=== PATIENT | female | born 1935 | race Caucasian/White ===

== ENCOUNTER 2018-10-25 14:21 | Emergency (ER) | payer MEDICARE ==
[~2018-10-25] VITALS: Ht 165.1 cm; Wt 63.5 kg
[~2018-10-25 14:21] MED LIST: ALPR0.25 PO; ASPI-1153 PO; DIVA250T34 PO; LEVO75TA7 PO; LIP10 PO; LOSA25TA3 PO; MEMA5TAB PO
[2018-10-25 14:24] VITALS: BP_SYST 120
[2018-10-25 19:37] VITALS: BP_SYST 120
== END 2018-10-25 19:37 | disposition home or self-care (01) ==
LOC: SED 14:21
DX: S00.03XA Contusion of scalp, initial encounter (principal); F03.90 Unspecified dementia, unspecified severity, without behavioral disturbance, psychotic disturbance, mood disturbance, and anxiety; Z79.82 Long term (current) use of aspirin; Z79.899 Other long term (current) drug therapy; Z88.8 Allergy status to other drugs, medicaments and biological substances; W07.XXXA Fall from chair, initial encounter; Y93.89 Activity, other specified; Y92.89 Other specified places as the place of occurrence of the external cause; Y99.8 Other external cause status
CPT/HCPCS: 70450-TC; 99284

== ENCOUNTER 2020-05-24 16:02 | Inpatient (IN) | payer MEDICARE, SELFPAY ==
[~2020-05-24] VITALS: Ht 157.5 cm; Wt 49.9 kg
[2020-05-24 16:02] VITALS: BP_SYST 131
[~2020-05-24 16:02] MED LIST changes: -ASPI-1153 PO; +ASPI-1393 PO
[2020-05-24] MEDS ORDERED: NACL 0.9% 1,000 ML IV ONE (16:45)
[2020-05-24 17:22] LABS: BASOPHILS % (AUTO) 0.8 % (0.0-2.0); HEMOGLOBIN 13.6 g/dL (12.0-16.0); LYMPHOCYTES # (AUTO) 1.5 K/uL (1.0-5.5); LYMPHOCYTES % (AUTO) 24.3 % (20.5-51.5); MEAN CORPUSCULAR HEMOGLOBIN 32 pg (27-31); MEAN CORPUSCULAR HGB CONC 34 % (32-36); MEAN CORPUSCULAR VOLUME 94 fL (79.0-98.0); MONOCYTES # (AUTO) 0.7 K/uL (0.0-1.0); MONOCYTES % (AUTO) 12.2 % (1.7-9.3); NEUTROPHILS # (AUTO) 3.8 K/uL (1.8-7.7); NEUTROPHILS % (AUTO) 62.7 % (40.0-70.0); PLATELET COUNT (AUTO) 269 K/uL (130-430); RED BLOOD CELL COUNT(AUTO) 4.27 MIL/uL (4.2-6.2)
[2020-05-24 17:45] LABS: PROTHROMBIN TIME 9.8 SECS (9.5-12.5)
[2020-05-24 18:17] LABS: ANION GAP 11 (5-15); CALCIUM 8.2 mg/dL (8.4-11.0); CHLORIDE 107 mmol/L (98-107); CREATININE 1.38 mg/dL (0.55-1.30); GLUCOSE 130 mg/dL (70-99); SODIUM SERUM 146 mmol/L (136-145); UREA NITROGEN, BLOOD 35 mg/dL (8-21)
[2020-05-24 18:22] LABS: ALANINE AMINOTRANSFERASE 24 U/L (12-78); ALBUMIN 3.1 g/dL (3.4-4.8); ASPARTATE AMINOTRANSFERASE 11 U/L (10-37); TOTAL BILIRUBIN 0.5 mg/dL (0.0-1.0)
[2020-05-24] MEDS ORDERED: POTASSIUM CHLORIDE 20 MEQ/PKT PACKET PO ONE (19:00)
[2020-05-24] MEDS ORDERED: KCL 20 mEq in 100 mL (PREMIX) 100 ML IV ONE (19:00)
[2020-05-24] MEDS ORDERED: GUAI5SYR4 PO (19:32)
[2020-05-24] MEDS ORDERED: ESCI10TA PO (19:32)
[2020-05-24] MEDS ORDERED: DEPS125 PO (19:32)
[2020-05-24] MEDS ORDERED: [UNRECOGNIZED DRUG - CODE] PO (19:42)
[2020-05-24] MEDS ORDERED: 0.45% NACL 1,000 ML IV SCH (19:45)
[2020-05-24] MEDS: AZITHROMYCIN 500 MG in NS 250 ML IV SCH (21:04)
[2020-05-24] MEDS ORDERED: ACETAMINOPHEN 650 MG SUPP.RECT RC PRN (22:45)
[2020-05-24] MEDS ORDERED: PROMETHAZINE-DM 6.25 MG-15 MG/5 ML UDC PO PRN (22:45)
[2020-05-24] MEDS ORDERED: ALPRAZolam 0.25 MG TABLET PO PRN (22:45)
[2020-05-24] MEDS ORDERED: POTASSIUM CHLORIDE 40 MEQ in D5W 250 ML IV SCH (22:45)
[2020-05-24] MEDS ORDERED: ENOXAPARIN SODIUM 30 MG/0.3 ML SYRINGE SUBCUT ONE (22:45)
[2020-05-24] MEDS ORDERED: ALBUTEROL MDI INHALATION 8 GM INH INH SCH (22:45)
[2020-05-24] MEDS ORDERED: ACETAMINOPHEN 325 MG TABLET PO PRN (22:45)
[2020-05-24] MEDS ORDERED: cefTRIAXone 1 GM VIAL ONE (22:58)
[2020-05-24] MEDS ORDERED: hydrALAZINE HCL 20 MG/ML VIAL IVP PRN (23:00)
[2020-05-24] MEDS: DEXAMETHASONE SOD PHOSPHATE 10 MG/ML VIAL IVP SCH (23:23)
[2020-05-24] MEDS: cefTRIAXone 1 GM in D5W 50 ML IV SCH (23:24)
[2020-05-24] MEDS: KCL 20 mEq in 100 mL (PREMIX) 100 ML IV SCH (23:56)
[2020-05-25 00:24] VITALS: BP_SYST 167
[2020-05-25] MEDS: cefTRIAXone 1 GM in D5W 50 ML IV SCH (00:24)
[2020-05-25] MEDS: KCL 20 mEq in 100 mL (PREMIX) 100 ML IV SCH (01:00)
[2020-05-25 08:00] VITALS: BP_SYST 174
[2020-05-25 08:13] LABS: BASOPHILS % (AUTO) 0.5 % (0.0-2.0); HEMATOCRIT 36.7 % (36-48); HEMOGLOBIN 12.6 g/dL (12.0-16.0); LYMPHOCYTES # (AUTO) 0.7 K/uL (1.0-5.5); LYMPHOCYTES % (AUTO) 14.6 % (20.5-51.5); MEAN CORPUSCULAR HEMOGLOBIN 32 pg (27-31); MEAN CORPUSCULAR HGB CONC 34 % (32-36); MEAN CORPUSCULAR VOLUME 94 fL (79.0-98.0); MONOCYTES # (AUTO) 0.2 K/uL (0.0-1.0); MONOCYTES % (AUTO) 4.4 % (1.7-9.3); NEUTROPHILS # (AUTO) 3.9 K/uL (1.8-7.7); NEUTROPHILS % (AUTO) 80.5 % (40.0-70.0); PLATELET COUNT (AUTO) 259 K/uL (130-430); RED CELL DISTRIBUTION WIDTH 13.1 % (9.0-15.0); WHITE BLOOD COUNT (AUTO) 4.8 K/uL (4.8-10.8)
[2020-05-25] MEDS: ALBUTEROL MDI INHALATION 8 GM INH INH SCH (08:35)
[2020-05-25 08:40] LABS: ALANINE AMINOTRANSFERASE 21 U/L (12-78); ALBUMIN 2.9 g/dL (3.4-4.8); ANION GAP 12 (5-15); ASPARTATE AMINOTRANSFERASE 25 U/L (10-37); CALCIUM 8.6 mg/dL (8.4-11.0); CHLORIDE 110 mmol/L (98-107); CREATININE 0.85 mg/dL (0.55-1.30); GLUCOSE 189 mg/dL (70-99); PHOSPHORUS 2.5 mg/dL (2.7-4.5); POTASSIUM 3.2 mmol/L (3.5-5.1); SODIUM SERUM 146 mmol/L (136-145); TOTAL BILIRUBIN 0.3 mg/dL (0.0-1.0); UREA NITROGEN, BLOOD 28 mg/dL (8-21)
[2020-05-25] MEDS ORDERED: ASPIRIN 81 MG TABLET(ECOTRIN) ONE (09:37)
[2020-05-25] MEDS: DIVALPROEX SODIUM 125 MG CAP.(DEPAKOTE SPRINKLE) PO SCH ×2 (09:56→22:10)
[2020-05-25] MEDS: CITALOPRAM HYDROBROMIDE 20 MG TABLET PO SCH (09:56)
[2020-05-25] MEDS: CHOLECALCIFEROL (VITAMIN D3) 2,000 UNIT TABLET PO SCH (09:57)
[2020-05-25] MEDS: MAGNESIUM OXIDE 400 MG TABLET PO SCH ×2 (09:57→22:10)
[2020-05-25] MEDS: ASCORBIC ACID 500 MG TABLET PO SCH ×2 (09:57→22:10)
[2020-05-25] MEDS: LEVOTHYROXINE SODIUM 0.075 MG TABLET PO SCH (09:57)
[2020-05-25] MEDS: ASPIRIN 81 MG TABLET(ECOTRIN) PO SCH (09:57)
[2020-05-25] MEDS: MEMANTINE HCL 5 MG TABLET PO SCH ×2 (09:57→22:10)
[2020-05-25] MEDS: ATORVASTATIN 10 MG TABLET PO SCH (09:57)
[2020-05-25] MEDS: ENOXAPARIN SODIUM 30 MG/0.3 ML SYRINGE SUBCUT SCH ×2 (10:00→22:10)
[2020-05-25] MEDS ORDERED: POTASSIUM CHLORIDE 40 MEQ, LIDOCAINE JECT 2% PF 100 MG 50 MG in NS 250 ML IV ONE (11:00)
[2020-05-25] MEDS: KCL 40 mEq in D5W 1000 mL 1,000 ML IV SCH (12:51)
[2020-05-25 13:16] VITALS: BP_SYST 100
[2020-05-25 17:13] VITALS: BP_SYST 116
[2020-05-25 20:00] VITALS: BP_SYST 112
[2020-05-25] MEDS: DEXAMETHASONE SOD PHOSPHATE 10 MG/ML VIAL IVP SCH (22:41)
[2020-05-25] MEDS: AZITHROMYCIN 500 MG in NS 250 ML IV SCH (23:00)
[2020-05-25] MEDS ORDERED: AZITHROMYCIN 500 MG/VIAL (ZITHROMAX) IV ONE (23:07)
[2020-05-25] MEDS ORDERED: cefTRIAXone 1 GM IVPB PREMIX 50 ML IV ONE (23:07)
[2020-05-26] VITALS: BP_SYST 118
[2020-05-26] MEDS: cefTRIAXone 1 GM in D5W 50 ML IV SCH (00:10)
[2020-05-26] MEDS: KCL 40 mEq in D5W 1000 mL 1,000 ML IV SCH (05:52)
[2020-05-26 08:00] VITALS: BP_SYST 156
[2020-05-26] MEDS: ASPIRIN 81 MG TABLET(ECOTRIN) PO SCH (10:12)
[2020-05-26] MEDS: CITALOPRAM HYDROBROMIDE 20 MG TABLET PO SCH (10:12)
[2020-05-26] MEDS: DIVALPROEX SODIUM 125 MG CAP.(DEPAKOTE SPRINKLE) PO SCH ×2 (10:12→21:00)
[2020-05-26] MEDS: ENOXAPARIN SODIUM 30 MG/0.3 ML SYRINGE SUBCUT SCH ×2 (10:13→21:00)
[2020-05-26] MEDS: ASCORBIC ACID 500 MG TABLET PO SCH ×2 (10:14→21:00)
[2020-05-26] MEDS: CHOLECALCIFEROL (VITAMIN D3) 2,000 UNIT TABLET PO SCH (10:14)
[2020-05-26] MEDS: MEMANTINE HCL 5 MG TABLET PO SCH ×2 (10:15→21:00)
[2020-05-26] MEDS: LEVOTHYROXINE SODIUM 0.075 MG TABLET PO SCH (10:15)
[2020-05-26] MEDS: MAGNESIUM OXIDE 400 MG TABLET PO SCH ×2 (10:15→21:00)
[2020-05-26] MEDS: ATORVASTATIN 10 MG TABLET PO SCH (10:15)
[2020-05-26 11:34] VITALS: BP_SYST 130
[2020-05-26] MEDS ORDERED: LR 500 ML IV ONE (12:00)
[2020-05-26] MEDS ORDERED: POTASSIUM CHLORIDE 40 MEQ in D5W 250 ML IV ONE (12:15)
[2020-05-26 15:30] VITALS: BP_SYST 141
[2020-05-26 20:00] VITALS: BP_SYST 133
[2020-05-26] MEDS ORDERED: cefTRIAXone 1 GM VIAL ONE (23:20)
[2020-05-26] MEDS ORDERED: AZITHROMYCIN 500 MG/VIAL (ZITHROMAX) IV ONE (23:20)
[2020-05-26] MEDS: AZITHROMYCIN 500 MG in NS 250 ML IV SCH (23:30)
[2020-05-26] MEDS: DEXAMETHASONE SOD PHOSPHATE 10 MG/ML VIAL IVP SCH (23:30)
[2020-05-27] VITALS: BP_SYST 135; BP_SYST 149
[2020-05-27] MEDS: KCL 40 mEq in D5W 1000 mL 1,000 ML IV SCH ×2 (02:00→22:00)
[2020-05-27 06:43] LABS: BASOPHILS % (AUTO) 0.1 % (0.0-2.0); HEMOGLOBIN 12.1 g/dL (12.0-16.0); MEAN CORPUSCULAR HEMOGLOBIN 33 pg (27-31); MEAN CORPUSCULAR HGB CONC 36 % (32-36); MEAN CORPUSCULAR VOLUME 92 fL (79.0-98.0); MONOCYTES # (AUTO) 0.3 K/uL (0.0-1.0); MONOCYTES % (AUTO) 4.1 % (1.7-9.3); NEUTROPHILS # (AUTO) 5.1 K/uL (1.8-7.7); NEUTROPHILS % (AUTO) 80.8 % (40.0-70.0); PLATELET COUNT (AUTO) 300 K/uL (130-430); RED BLOOD CELL COUNT(AUTO) 3.71 MIL/uL (4.2-6.2); RED CELL DISTRIBUTION WIDTH 12.8 % (9.0-15.0); WHITE BLOOD COUNT (AUTO) 6.3 K/uL (4.8-10.8)
[2020-05-27 07:49] LABS: ALANINE AMINOTRANSFERASE 23 U/L (12-78); ALBUMIN 2.8 g/dL (3.4-4.8); ANION GAP 12 (5-15); ASPARTATE AMINOTRANSFERASE 25 U/L (10-37); CALCIUM 8.2 mg/dL (8.4-11.0); CHLORIDE 106 mmol/L (98-107); CREATININE 0.68 mg/dL (0.55-1.30); GLUCOSE 203 mg/dL (70-99); POTASSIUM 3.1 mmol/L (3.5-5.1); SODIUM SERUM 140 mmol/L (136-145); TOTAL BILIRUBIN 0.4 mg/dL (0.0-1.0); UREA NITROGEN, BLOOD 27 mg/dL (8-21)
[2020-05-27 08:35] VITALS: BP_SYST 135
[2020-05-27] MEDS: ATORVASTATIN 10 MG TABLET PO SCH (09:00)
[2020-05-27] MEDS: MEMANTINE HCL 5 MG TABLET PO SCH ×2 (09:00→21:55)
[2020-05-27] MEDS: CITALOPRAM HYDROBROMIDE 20 MG TABLET PO SCH (09:00)
[2020-05-27] MEDS: CHOLECALCIFEROL (VITAMIN D3) 2,000 UNIT TABLET PO SCH (09:00)
[2020-05-27] MEDS: DIVALPROEX SODIUM 125 MG CAP.(DEPAKOTE SPRINKLE) PO SCH ×2 (09:00→21:55)
[2020-05-27] MEDS: ASPIRIN 81 MG TABLET(ECOTRIN) PO SCH (09:00)
[2020-05-27] MEDS: ASCORBIC ACID 500 MG TABLET PO SCH ×2 (09:00→21:55)
[2020-05-27] MEDS: ENOXAPARIN SODIUM 30 MG/0.3 ML SYRINGE SUBCUT SCH ×2 (09:00→21:55)
[2020-05-27] MEDS: MAGNESIUM OXIDE 400 MG TABLET PO SCH ×2 (09:00→21:55)
[2020-05-27] MEDS: LEVOTHYROXINE SODIUM 0.075 MG TABLET PO SCH (09:00)
[2020-05-27 11:24] VITALS: BP_SYST 156
[2020-05-27] MEDS ORDERED: HALOPERIDOL LACTATE 5 MG/ML VIAL IM ONE (12:00)
[2020-05-27] MEDS ORDERED: HALOPERIDOL LACTATE 5 MG/ML VIAL IM PRN (12:00)
[2020-05-27] MEDS ORDERED: DEXTROSE 50% JECT 50 ML DISP.SYRIN IVP PRN (12:00)
[2020-05-27] MEDS ORDERED: INSULIN REGULAR, HUMAN 100 UNITS/ML, 10 ML VIAL (humuLIN R) SUBCUT PRN (12:00)
[2020-05-27] MEDS: POTASSIUM CHLORIDE 40 MEQ in D5W 250 ML IV SCH ×2 (13:30→16:00)
[2020-05-27] MEDS: ALBUTEROL MDI INHALATION 8 GM INH INH SCH (15:00)
[2020-05-27 15:07] VITALS: BP_SYST 149
[2020-05-27] MEDS: QUEtiapine FUMARATE 25 MG TABLET PO SCH (17:56)
[2020-05-27] MEDS: AZITHROMYCIN 500 MG in NS 250 ML IV SCH (21:55)
[2020-05-27] MEDS: cefTRIAXone 1 GM in D5W 50 ML IV SCH (22:45)
[2020-05-28] MEDS: ALBUTEROL MDI INHALATION 8 GM INH INH SCH ×4 (07:00→19:30)
[2020-05-28 07:24] LABS: BASOPHILS % (AUTO) 0.2 % (0.0-2.0); HEMATOCRIT 34.3 % (36-48); LYMPHOCYTES # (AUTO) 2.4 K/uL (1.0-5.5); LYMPHOCYTES % (AUTO) 34.7 % (20.5-51.5); MEAN CORPUSCULAR HEMOGLOBIN 32 pg (27-31); MEAN CORPUSCULAR HGB CONC 35 % (32-36); MEAN CORPUSCULAR VOLUME 92 fL (79.0-98.0); MONOCYTES # (AUTO) 0.6 K/uL (0.0-1.0); MONOCYTES % (AUTO) 9.1 % (1.7-9.3); NEUTROPHILS # (AUTO) 3.9 K/uL (1.8-7.7); PLATELET COUNT (AUTO) 331 K/uL (130-430); RED BLOOD CELL COUNT(AUTO) 3.75 MIL/uL (4.2-6.2); RED CELL DISTRIBUTION WIDTH 12.6 % (9.0-15.0)
[2020-05-28 08:10] LABS: ANION GAP 12 (5-15); CALCIUM 8.1 mg/dL (8.4-11.0); CHLORIDE 105 mmol/L (98-107); CREATININE 0.74 mg/dL (0.55-1.30); GLUCOSE 126 mg/dL (70-99); POTASSIUM 3.4 mmol/L (3.5-5.1); SODIUM SERUM 138 mmol/L (136-145); UREA NITROGEN, BLOOD 18 mg/dL (8-21)
[2020-05-28] MEDS: DIVALPROEX SODIUM 125 MG CAP.(DEPAKOTE SPRINKLE) PO SCH ×2 (08:54→21:30)
[2020-05-28] MEDS: ASPIRIN 81 MG TABLET(ECOTRIN) PO SCH (08:54)
[2020-05-28] MEDS: MEMANTINE HCL 5 MG TABLET PO SCH ×2 (08:54→21:30)
[2020-05-28] MEDS: ATORVASTATIN 10 MG TABLET PO SCH (08:54)
[2020-05-28] MEDS: MAGNESIUM OXIDE 400 MG TABLET PO SCH ×2 (08:54→21:30)
[2020-05-28] MEDS: LEVOTHYROXINE SODIUM 0.075 MG TABLET PO SCH (08:55)
[2020-05-28] MEDS: CHOLECALCIFEROL (VITAMIN D3) 2,000 UNIT TABLET PO SCH (08:55)
[2020-05-28] MEDS: ASCORBIC ACID 500 MG TABLET PO SCH ×2 (08:55→21:30)
[2020-05-28] MEDS: ENOXAPARIN SODIUM 30 MG/0.3 ML SYRINGE SUBCUT SCH ×2 (09:23→21:30)
[2020-05-28 11:28] VITALS: BP_SYST 172
[2020-05-28] MEDS ORDERED: KCL 40 mEq in 100 mL (PREMIX) 100 ML IV ONE (12:15)
[2020-05-28 15:27] VITALS: BP_SYST 162
[2020-05-28] MEDS: QUEtiapine FUMARATE 25 MG TABLET PO SCH (16:50)
[2020-05-28] MEDS: KCL 40 mEq in D5W 1000 mL 1,000 ML IV SCH (16:50)
[2020-05-28] MEDS: AZITHROMYCIN 500 MG in NS 250 ML IV SCH (21:30)
[2020-05-28] MEDS: cefTRIAXone 1 GM in D5W 50 ML IV SCH (22:45)
[2020-05-28 23:53] VITALS: BP_SYST 140
[2020-05-29 00:13] VITALS: BP_SYST 136
[2020-05-29 06:56] LABS: BASOPHILS # (AUTO) 0.1 K/uL (0.0-0.2); BASOPHILS % (AUTO) 0.6 % (0.0-2.0); EOSINOPHILS # (AUTO) 0.1 K/uL (0.0-0.4); EOSINOPHILS % (AUTO) 0.7 % (0.0-4.0); HEMATOCRIT 38.6 % (36-48); HEMOGLOBIN 13.8 g/dL (12.0-16.0); LYMPHOCYTES # (AUTO) 2.2 K/uL (1.0-5.5); LYMPHOCYTES % (AUTO) 26.1 % (20.5-51.5); MEAN CORPUSCULAR HEMOGLOBIN 33 pg (27-31); MEAN CORPUSCULAR HGB CONC 36 % (32-36); MEAN CORPUSCULAR VOLUME 92 fL (79.0-98.0); MONOCYTES # (AUTO) 0.6 K/uL (0.0-1.0); MONOCYTES % (AUTO) 6.5 % (1.7-9.3); NEUTROPHILS # (AUTO) 5.6 K/uL (1.8-7.7); NEUTROPHILS % (AUTO) 66.1 % (40.0-70.0); PLATELET COUNT (AUTO) 399 K/uL (130-430); RED CELL DISTRIBUTION WIDTH 12.8 % (9.0-15.0); WHITE BLOOD COUNT (AUTO) 8.5 K/uL (4.8-10.8)
[2020-05-29] MEDS ORDERED: HALOPERIDOL LACTATE 5 MG/ML VIAL IM SCH (07:00)
[2020-05-29] MEDS: ALBUTEROL MDI INHALATION 8 GM INH INH SCH ×3 (07:00→16:01)
[2020-05-29 07:40] LABS: ANION GAP 10 (5-15); CALCIUM 8.6 mg/dL (8.4-11.0); CHLORIDE 102 mmol/L (98-107); CREATININE 0.75 mg/dL (0.55-1.30); GLUCOSE 145 mg/dL (70-99); POTASSIUM 3.9 mmol/L (3.5-5.1); SODIUM SERUM 135 mmol/L (136-145); UREA NITROGEN, BLOOD 12 mg/dL (8-21)
[2020-05-29 08:00] VITALS: BP_SYST 148
[2020-05-29] MEDS: MAGNESIUM OXIDE 400 MG TABLET PO SCH (09:00)
[2020-05-29] MEDS: ASCORBIC ACID 500 MG TABLET PO SCH (09:00)
[2020-05-29] MEDS: MEMANTINE HCL 5 MG TABLET PO SCH (09:00)
[2020-05-29] MEDS: DIVALPROEX SODIUM 125 MG CAP.(DEPAKOTE SPRINKLE) PO SCH (09:00)
[2020-05-29] MEDS: ATORVASTATIN 10 MG TABLET PO SCH (09:00)
[2020-05-29] MEDS: LEVOTHYROXINE SODIUM 0.075 MG TABLET PO SCH (09:00)
[2020-05-29] MEDS: ASPIRIN 81 MG TABLET(ECOTRIN) PO SCH (09:00)
[2020-05-29] MEDS: CHOLECALCIFEROL (VITAMIN D3) 2,000 UNIT TABLET PO SCH (09:00)
[2020-05-29 09:07] VITALS: BP_SYST 148
[2020-05-29] MEDS: ENOXAPARIN SODIUM 30 MG/0.3 ML SYRINGE SUBCUT SCH (10:14)
[2020-05-29] MEDS: KCL 40 mEq in D5W 1000 mL 1,000 ML IV SCH (11:19)
[2020-05-29 11:25] VITALS: BP_SYST 134
[2020-05-29 15:25] VITALS: BP_SYST 143
[2020-05-29] MEDS: QUEtiapine FUMARATE 25 MG TABLET PO SCH (17:31)
[2020-05-29 17:52] VITALS: BP_SYST 141
== END 2020-05-29 21:25 | disposition home or self-care (01) | DRG 871 ==
LOC: SED 16:02 → STU 19:35
PROVIDERS: ADMIT Internal Medicine; ATTEND Internal Medicine
PROC: 05HY33Z Insertion of Infusion Device into Upper Vein, Percutaneous Approach (ICD-10-PCS; principal; 2020-05-25)
PROC: B54MZZA Ultrasonography of Right Upper Extremity Veins, Guidance (ICD-10-PCS; 2020-05-25)
DX: A41.9 Sepsis, unspecified organism (principal); U07.1 COVID-19; J96.01 Acute respiratory failure with hypoxia; N17.0 Acute kidney failure with tubular necrosis; E87.1 Hypo-osmolality and hyponatremia; E87.0 Hyperosmolality and hypernatremia; F03.91 Unspecified dementia, unspecified severity, with behavioral disturbance; E44.1 Mild protein-calorie malnutrition; E78.5 Hyperlipidemia, unspecified; N18.9 Chronic kidney disease, unspecified; I12.9 Hypertensive chronic kidney disease with stage 1 through stage 4 chronic kidney disease, or unspecified chronic kidney disease; E87.6 Hypokalemia; E03.9 Hypothyroidism, unspecified; E86.0 Dehydration; Z88.8 Allergy status to other drugs, medicaments and biological substances; Z79.899 Other long term (current) drug therapy; Z79.82 Long term (current) use of aspirin; Z68.20 Body mass index [BMI] 20.0-20.9, adult
CPT/HCPCS: 36415; 36600; 71045; 80048; 80053; 82803-TC; 82962; 83605; 83735-TC; 84100-TC; 84484; 85025; 85379; 85610-TC; 85730-TC; 87040-TC; 87081; 93005; 94664; 96365; 97110-GP; 97112-GP; 97530-GP; 99285; C1751; G0378; J0360; J0456; J0696; J1100; J1630; J1650; J1815; J3480; J7030; J7050; J7060; U0003

== ENCOUNTER 2021-01-05 19:33 | Emergency (ER) | payer MEDICARE, SELFPAY ==
[~2021-01-05] VITALS: Ht 162.6 cm; Wt 59.0 kg
[2021-01-05 19:33] VITALS: BP_SYST 146
[~2021-01-05 19:33] MED LIST changes: +DEPS125 PO; -DIVA250T34 PO; +ESCI10TA PO; +GUAI5SYR4 PO; -LOSA25TA3 PO; +[UNRECOGNIZED DRUG - CODE] PO
--- NOTE | 2021-01-05 19:33 | NUR ---
PT TO BED 3 FOR EVALUATION. PT ATTACHED TO MONITOR AND REPORT GIVEN TO ADRIANNA RAND WHO WILL ASSUME CARE.
--- NOTE | 2021-01-05 19:34 | NUR ---
Came in ER from [facility] brought by [facility] paramedics this 85 year old, female, AAOx2, breathing spontaneously at room air, not in distress noted, With chief complaints of CHest pain an hour, Known with CAD,Hyperlipidemia, DEmentia, stage 3 chronic kidney disease. Allergy to Benzodiazepine, lisinopril. Vital signs stable
[2021-01-05] MEDS ORDERED: NITROGLYCERIN 1 INCH (GM) OINT. TP ONE (19:39)
[2021-01-05] MEDS ORDERED: MORPHINE 4 MG INJ. 4 MG/ML VIAL IVP ONE (19:39)
--- NOTE | 2021-01-05 19:40 | NUR ---
Seen and examined by Dr. Monroe, ER Attending
--- NOTE | 2021-01-05 19:45 | NUR ---
# 20 gauge angiocath placed to LEFT HAND. Use of asceptic technique. Opsite placed over site. Blood return noted. Blood for lab drawn from site. Flushed with 10 cc of normal saline. No evidence of infiltration noted. Patient tolerated well.
--- NOTE | 2021-01-05 19:59 | NUR ---
CHest xray done at bedside
--- NOTE | 2021-01-05 20:06 | NUR ---
Medications fiven as ordered, health provided
[2021-01-05 20:08] LABS: BASOPHILS # (AUTO) 0.1 K/uL (0.0-0.2); BASOPHILS % (AUTO) 1.1 % (0.0-2.0); EOSINOPHILS # (AUTO) 0.3 K/uL (0.0-0.4); EOSINOPHILS % (AUTO) 4.2 % (0.0-4.0); HEMATOCRIT 35.8 % (36-48); HEMOGLOBIN 12.5 g/dL (12.0-16.0); LYMPHOCYTES # (AUTO) 2.3 K/uL (1.0-5.5); LYMPHOCYTES % (AUTO) 34.4 % (20.5-51.5); MEAN CORPUSCULAR HEMOGLOBIN 33 pg (27-31); MEAN CORPUSCULAR HGB CONC 35 % (32-36); MEAN CORPUSCULAR VOLUME 96 fL (79.0-98.0); MONOCYTES # (AUTO) 0.8 K/uL (0.0-1.0); MONOCYTES % (AUTO) 11.6 % (1.7-9.3); NEUTROPHILS # (AUTO) 3.2 K/uL (1.8-7.7); NEUTROPHILS % (AUTO) 48.7 % (40.0-70.0); PLATELET COUNT (AUTO) 324 K/uL (130-430); RED BLOOD CELL COUNT(AUTO) 3.74 MIL/uL (4.2-6.2); RED CELL DISTRIBUTION WIDTH 13.7 % (9.0-15.0); WHITE BLOOD COUNT (AUTO) 6.6 K/uL (4.8-10.8)
--- NOTE | 2021-01-05 20:09 | NUR ---
Initial blood sample hemolyzed, shift lab technician at bedside, blood drawn
--- NOTE | 2021-01-05 20:35 | NUR ---
Daughter at bedside, updated about patient status
[2021-01-05 20:46] LABS: ANION GAP 11 (5-15); CALCIUM 8.9 mg/dL (8.4-11.0); CHLORIDE 101 mmol/L (98-107); CREATININE 1.23 mg/dL (0.55-1.30); GLUCOSE 184 mg/dL (70-99); POTASSIUM 3.5 mmol/L (3.5-5.1); SODIUM SERUM 136 mmol/L (136-145); UREA NITROGEN, BLOOD 16 mg/dL (8-21)
[2021-01-05 20:52] LABS: ALANINE AMINOTRANSFERASE 32 U/L (12-78); ALBUMIN 3.5 g/dL (3.4-4.8); ASPARTATE AMINOTRANSFERASE 22 U/L (10-37); TOTAL BILIRUBIN 0.2 mg/dL (0.0-1.0)
--- NOTE | 2021-01-05 21:01 | NUR ---
Jame Fletcher contacted 3 times for patient details and medication, no answer
--- NOTE | 2021-01-05 23:10 | NUR ---
Asleep, not in distress noted
--- NOTE | 2021-01-06 01:09 | NUR ---
Patient to be transferred to [facility]. Is being transferred due to higher level of care. Receiving facility has accepting physician and available space. ER physician has signed transfer form. Patient or responsible libertarian has agreed to transfer and signed form. Patient belongings inventoried and will be sent with patient. Copy of nursing notes, lab reports, EKG, Physicians Orders and X-rays to be sent with patient. Report called to ADRIANNA Ramirez at receiving facility. Receiving physician is Dr. Ruddy Monson. [facility] for [facility]. ETA is 5mins.
[2021-01-06 01:17] VITALS: BP_SYST 139
--- NOTE | 2021-01-06 01:17 | NUR ---
Transferred to [facility] accompanied by [facility] transport personnel in stable condition
== END 2021-01-06 01:17 | disposition short-term general hospital (02) ==
LOC: SED 19:33
DX: R07.89 Other chest pain (principal); I10 Essential (primary) hypertension; I25.10 Atherosclerotic heart disease of native coronary artery without angina pectoris; Z88.8 Allergy status to other drugs, medicaments and biological substances; Z79.899 Other long term (current) drug therapy; Z20.822 Contact with and (suspected) exposure to COVID-19
CPT/HCPCS: 36415; 71045; 80053; 83880; 84484; 85025; 85379; 87426; 96374; 99285; J2270; 93005

== ENCOUNTER 2022-10-08 14:38 | Emergency (ER) | payer MEDICARE ==
[~2022-10-08] VITALS: Ht 162.6 cm; Wt 61.2 kg
[~2022-10-08 14:38] MED LIST changes: +CEPH-548 PO
[2022-10-08 14:40] VITALS: BP_SYST 125
--- NOTE | 2022-10-08 14:50 | NUR ---
BROUGHT IN BY [facility] AND PLACED IN BED #4, TRIAGED. REPORT GIVEN TO NURSE
--- NOTE | 2022-10-08 14:50 | NUR ---
Pt brought by ambulance, A&Ox1, pt presents to ER with generalized pain, pt denies pain upon arrival, skin pink and warm, cap refill <3, respirations even and unlabored, will cont to monitor.
--- NOTE | 2022-10-08 15:10 | NUR ---
Dr Monroe evaluating patient at bedside
[2022-10-08] MEDS ORDERED: NACL 0.9% 1,000 ML IV ONE (17:15)
--- NOTE | 2022-10-08 17:30 | NUR ---
# 16 FR Wood catheter with use of sterile technique. Immediate return of 200 cc CLOUDY YELLOW urine noted. Bedside drainage bag placed below level of bladder. Urine sample collected and sent to lab. Pt tolerated procedure WELL Patient unable to toilet self.
--- NOTE | 2022-10-08 17:41 | NUR ---
# 20 gauge angiocath placed to LT HAND. Use of asceptic technique. Opsite placed over site. Blood return noted. Blood for lab drawn from site. Flushed with 10 cc of normal saline. No evidence of infiltration noted. Patient tolerated well.
[2022-10-08 18:13] LABS: ANION GAP 12 (5-15); CALCIUM 8.9 mg/dL (8.4-11.0); CHLORIDE 101 mmol/L (98-107); CREATININE 0.98 mg/dL (0.55-1.30); GLUCOSE 155 mg/dL (70-99); UREA NITROGEN, BLOOD 18 mg/dL (8-21)
[2022-10-08 18:17] LABS: ALANINE AMINOTRANSFERASE 46 U/L (12-78); ALBUMIN 3.6 g/dL (3.4-4.8); ASPARTATE AMINOTRANSFERASE 33 U/L (10-37); TOTAL BILIRUBIN 0.2 mg/dL (0.0-1.0)
[2022-10-08 18:18] LABS: BASOPHILS # (AUTO) 0.1 K/uL (0.0-0.2); EOSINOPHILS # (AUTO) 0.3 K/uL (0.0-0.4); EOSINOPHILS % (AUTO) 3.5 % (0.0-4.0); HEMATOCRIT 38.9 % (36-48); HEMOGLOBIN 13.3 g/dL (12.0-16.0); MEAN CORPUSCULAR HEMOGLOBIN 32 pg (27-31); MEAN CORPUSCULAR HGB CONC 34 % (32-36); MEAN CORPUSCULAR VOLUME 95 fL (79.0-98.0); MONOCYTES # (AUTO) 0.7 K/uL (0.0-1.0); MONOCYTES % (AUTO) 8.3 % (1.7-9.3); NEUTROPHILS # (AUTO) 4.4 K/uL (1.8-7.7); NEUTROPHILS % (AUTO) 52.2 % (40.0-70.0); PLATELET COUNT (AUTO) 342 K/uL (130-430); RED BLOOD CELL COUNT(AUTO) 4.11 MIL/uL (4.2-6.2); RED CELL DISTRIBUTION WIDTH 13.6 % (9.0-15.0); WHITE BLOOD COUNT (AUTO) 8.4 K/uL (4.8-10.8)
[2022-10-08 18:55] LABS: BILIRUBIN,URINE NEGATIVE (NEGATIVE); CLARITY/URINE CLEAR (CLEAR); COLOR,URINE YELLOW (YELLOW); GLUCOSE,URINE NEGATIVE (NEGATIVE); KETONES,URINE NEGATIVE (NEGATIVE); LEUKOCYTE ESTERASE ,URINE 2+ (NEGATIVE); NITRITE, URINE NEGATIVE (NEGATIVE); PH,URINE 5.5 (5.0-8.0); PROTEIN URINE NEGATIVE (NEGATIVE); UROBILINOGEN,URINE 0.2 (0.2-1.0)
[2022-10-08 19:04] LABS: BLOOD, URINE TRACE (NEGATIVE)
--- NOTE | 2022-10-08 19:05 | NUR ---
Pt resting comfortably in bed , no s/s of distress.
[2022-10-08] MEDS ORDERED: cefTRIAXone 1 GM IVPB PREMIX 50 ML IV ONE (19:15)
--- NOTE | 2022-10-08 19:15 | NUR ---
Report received from ADRIANNA Severino. Will continue with POC; and, continue to monitor VS & clinical status.
--- NOTE | 2022-10-08 19:15 | NUR ---
Report given to Jabier RODAS
[2022-10-08 19:16] LABS: BACTERIA,URINE FEW /HPF (None Seen)
--- NOTE | 2022-10-08 19:38 | NUR ---
Patient medicated with Rocephine 1 GM IVPB.
--- NOTE | 2022-10-08 20:00 | NUR ---
No change from previous assessment. Will continue with POC; and, continue to monitor VS & clinical status.
[2022-10-08] MEDS ORDERED: MORPHINE 4 MG INJ. 4 MG/ML VIAL IVP ONE (20:45)
--- NOTE | 2022-10-08 20:45 | NUR ---
Patient medicated with Morphine 4 mg IVP.
--- NOTE | 2022-10-08 21:45 | NUR ---
Patient Incontinent with urine and stool. Patient given complete bed bath with linen change.
--- NOTE | 2022-10-08 22:00 | NUR ---
No change from previous assessment. Will continue with POC; and, continue to monitor VS & clinical status.
--- NOTE | 2022-10-09 | NUR ---
No change from previous assessment. Will continue with POC; and, continue to monitor VS & clinical status.
--- NOTE | 2022-10-09 02:00 | NUR ---
No change from previous assessment. Will continue with POC; and, continue to monitor VS & clinical status.
--- NOTE | 2022-10-09 02:10 | NUR ---
Report called to Danielito Arce.
[2022-10-09 02:20] VITALS: BP_SYST 104
--- NOTE | 2022-10-09 02:20 | NUR ---
EMS at bedside. Report given to EMT's. Patient transferred to EMS [facility] and OTD in stable condition to Ambulance enroute to [facility] Room 4046. Patient's mother Yoly called and notified patient departing [facility].
== END 2022-10-09 02:20 | disposition short-term general hospital (02) ==
LOC: SED 14:38
DX: N39.0 Urinary tract infection, site not specified (principal); A41.9 Sepsis, unspecified organism; R53.1 Weakness; R10.13 Epigastric pain; R07.9 Chest pain, unspecified; I11.0 Hypertensive heart disease with heart failure; I50.9 Heart failure, unspecified; Z88.8 Allergy status to other drugs, medicaments and biological substances; Z79.899 Other long term (current) drug therapy; Z20.822 Contact with and (suspected) exposure to COVID-19
CPT/HCPCS: 99291; 96365; 96361; 96375; 87426; 80053; 81000; 85025; 87040; 87086; 84484; 36415; 93005; 71045; 83605; J0696; J2270; J7030

== ENCOUNTER 2023-06-18 10:48 | Emergency (ER) | payer MEDICARE ==
[~2023-06-18] VITALS: Ht 157.5 cm; Wt 54.4 kg
[2023-06-18 10:48] VITALS: BP_SYST 122; PULSE 86; RESP 18; TEMP 98; O2SAT 95
[2023-06-18 12:29] LABS: BASOPHILS % (AUTO) 0.7 % (0.0-2.0); EOSINOPHILS # (AUTO) 0.3 K/uL (0.0-0.4); EOSINOPHILS % (AUTO) 5.2 % (0.0-4.0); HEMOGLOBIN 13.2 g/dL (12.0-16.0); LYMPHOCYTES # (AUTO) 1.9 K/uL (1.0-5.5); LYMPHOCYTES % (AUTO) 32.6 % (20.5-51.5); MEAN CORPUSCULAR HEMOGLOBIN 32 pg (27-31); MEAN CORPUSCULAR HGB CONC 35 % (32-36); MEAN CORPUSCULAR VOLUME 94 fL (79.0-98.0); MONOCYTES # (AUTO) 0.6 K/uL (0.0-1.0); MONOCYTES % (AUTO) 10.1 % (1.7-9.3); NEUTROPHILS # (AUTO) 3.1 K/uL (1.8-7.7); NEUTROPHILS % (AUTO) 51.4 % (40.0-70.0); PLATELET COUNT (AUTO) 360 K/uL (130-430); RED BLOOD CELL COUNT(AUTO) 4.07 MIL/uL (4.2-6.2); RED CELL DISTRIBUTION WIDTH 13.1 % (9.0-15.0)
[2023-06-18] MEDS ORDERED: DONE10TA44 PO (12:35)
[2023-06-18 12:36] LABS: ANION GAP 12 (5-15); CALCIUM 9.5 mg/dL (8.4-11.0); CARBON DIOXIDE 25 mmol/L (23-29); CHLORIDE 107 mmol/L (98-107); CREATININE 1.05 mg/dL (0.55-1.30); GLUCOSE 138 mg/dL (74-106); POTASSIUM 3.8 mmol/L (3.5-5.1); SODIUM SERUM 144 mmol/L (136-145); UREA NITROGEN, BLOOD 17 mg/dL (8-21)
[2023-06-18 12:41] LABS: ALANINE AMINOTRANSFERASE 30 U/L (12-78); ALBUMIN 3.4 g/dL (3.4-4.8); ASPARTATE AMINOTRANSFERASE 24 U/L (10-37); TOTAL BILIRUBIN 0.5 mg/dL (0.0-1.0); TOTAL PROTEIN, SERUM 7.5 g/dL (6.4-8.3)
[2023-06-18] MEDS ORDERED: MAGN24002 PO (12:47)
[2023-06-18] MEDS ORDERED: DOCU100T10 PO (12:47)
[2023-06-18] MEDS ORDERED: LACT10SO6 PO (12:47)
[2023-06-18] MEDS ORDERED: ACET-2766 PO (12:47)
[2023-06-18] MEDS ORDERED: [UNRECOGNIZED DRUG - CODE] PO (12:47)
[2023-06-18] MEDS ORDERED: METF750T46 PO (12:47)
[2023-06-18] MEDS ORDERED: ANT30 PO (12:47)
[2023-06-18] MEDS ORDERED: NYST15PO2 (12:47)
[2023-06-18] MEDS ORDERED: ECON15CR4 (12:47)
[2023-06-18] MEDS ORDERED: [UNRECOGNIZED DRUG - OTHER] PO (12:47)
[2023-06-18 14:11] LABS: BILIRUBIN,URINE NEGATIVE (NEGATIVE); BLOOD, URINE 2+ (NEGATIVE); CLARITY/URINE CLOUDY (CLEAR); COLOR,URINE YELLOW (YELLOW); GLUCOSE,URINE NEGATIVE (NEGATIVE); KETONES,URINE TRACE (NEGATIVE); LEUKOCYTE ESTERASE ,URINE 3+ (NEGATIVE); NITRITE, URINE POSITIVE (NEGATIVE); PROTEIN URINE 3+ (NEGATIVE)
[2023-06-18 14:35] LABS: BACTERIA,URINE MODERATE /HPF (None Seen); WBC,URINE >100 /HPF (0-3)
[2023-06-18] MEDS ORDERED: cefTRIAXone 1 GM VIAL ONE (15:29)
[2023-06-18] MEDS: cefTRIAXone 1 GM in D5W 50 ML IV ONE (15:32)
[2023-06-18 20:13] VITALS: BP_SYST 105; PULSE 68; RESP 16; TEMP 98.4; O2SAT 95
== END 2023-06-18 20:13 | disposition short-term general hospital (02) ==
LOC: SED 10:48
DX: R41.82 Altered mental status, unspecified (principal); N39.0 Urinary tract infection, site not specified; F03.90 Unspecified dementia, unspecified severity, without behavioral disturbance, psychotic disturbance, mood disturbance, and anxiety; I25.10 Atherosclerotic heart disease of native coronary artery without angina pectoris; R07.89 Other chest pain; I12.9 Hypertensive chronic kidney disease with stage 1 through stage 4 chronic kidney disease, or unspecified chronic kidney disease; Z20.822 Contact with and (suspected) exposure to COVID-19
CPT/HCPCS: 99285; 96365; 70450; 71045; 87426; 80053; 81001; 80164; 85025; 87040; 87086; 84484; 36415; 93005; 76376; 83605; J0696; 81000; 81015

== ENCOUNTER 2024-01-22 13:23 | Emergency (ER) | payer MEDICARE ==
[~2024-01-22] VITALS: Ht 162.6 cm; Wt 49.9 kg
[~2024-01-22 13:23] MED LIST changes: +ACET-2766 PO; +ANT30 PO; -ASPI-1393 PO; +ATOR-449 PO; -CEPH-548 PO; +DOCU100T10 PO; +DONE10TA44 PO; +ECON15CR4; -GUAI5SYR4 PO; +LACT10SO6 PO; -LIP10 PO; +MAGN24002 PO; +METF750T46 PO; +NYST15PO2; +[UNRECOGNIZED DRUG - CODE] PO; -[UNRECOGNIZED DRUG - CODE] PO; +[UNRECOGNIZED DRUG - OTHER] PO
[2024-01-22 13:35] VITALS: BP_SYST 114; PULSE 88; RESP 20; TEMP 96.1; O2SAT 94
[2024-01-22 14:19] LABS: BASOPHILS # (AUTO) 0.1 K/uL (0.0-0.2); EOSINOPHILS # (AUTO) 0.4 K/uL (0.0-0.4); HEMATOCRIT 39.5 % (36-48); HEMOGLOBIN 13.4 g/dL (12.0-16.0); LYMPHOCYTES # (AUTO) 2.3 K/uL (1.0-5.5); LYMPHOCYTES % (AUTO) 28.3 % (20.5-51.5); MEAN CORPUSCULAR HEMOGLOBIN 31 pg (27-31); MEAN CORPUSCULAR HGB CONC 34 % (32-36); MEAN CORPUSCULAR VOLUME 92 fL (79.0-98.0); MONOCYTES # (AUTO) 0.7 K/uL (0.0-1.0); MONOCYTES % (AUTO) 8.9 % (1.7-9.3); NEUTROPHILS # (AUTO) 4.6 K/uL (1.8-7.7); NEUTROPHILS % (AUTO) 56.8 % (40.0-70.0); PLATELET COUNT (AUTO) 393 K/uL (130-430); RED BLOOD CELL COUNT(AUTO) 4.31 MIL/uL (4.2-6.2); RED CELL DISTRIBUTION WIDTH 13.3 % (9.0-15.0)
[2024-01-22 14:36] LABS: ANION GAP 12 (5-15); CALCIUM 9.5 mg/dL (8.4-11.0); CARBON DIOXIDE 24 mmol/L (23-29); CHLORIDE 105 mmol/L (98-107); CREATININE 0.96 mg/dL (0.55-1.30); GLUCOSE 123 mg/dL (74-106); POTASSIUM 3.4 mmol/L (3.5-5.1); SODIUM SERUM 141 mmol/L (136-145); UREA NITROGEN, BLOOD 15 mg/dL (8-21)
[2024-01-22] MEDS ORDERED: CLIN-22 PO (15:51)
[2024-01-22] MEDS: CLINDAMYCIN HCL 150 MG CAPSULE PO ONE (16:13)
[2024-01-22 20:05] VITALS: BP_SYST 114; PULSE 76; RESP 22; TEMP 98.4; O2SAT 93
== END 2024-01-22 20:05 | disposition home or self-care (01) ==
LOC: SED 13:23
DX: L03.113 Cellulitis of right upper limb (principal); I12.9 Hypertensive chronic kidney disease with stage 1 through stage 4 chronic kidney disease, or unspecified chronic kidney disease; N18.9 Chronic kidney disease, unspecified; F02.80 Dementia in other diseases classified elsewhere, unspecified severity, without behavioral disturbance, psychotic disturbance, mood disturbance, and anxiety; E03.9 Hypothyroidism, unspecified; Z88.8 Allergy status to other drugs, medicaments and biological substances; Z79.899 Other long term (current) drug therapy; Z79.2 Long term (current) use of antibiotics
CPT/HCPCS: 36415; 80048; 83605; 85025; 99284